=== PATIENT | female | born 1980 | race Caucasian/White ===

== ENCOUNTER → 2019-02-02 | Outpatient (CLI) | payer BC ==
--- NOTE | 2019-02-15 04:18 | Polysomnography ---
DATE OF STUDY: 02/02/2019 REFERRING PHYSICIAN: Isacc Smith MD INTERPRETING PHYSICIAN: Isacc Smith M.D. STUDY: INTERPRETATION of HOME SLEEP STUDY IMPRESSION: 1. Mild obstructive sleep apnea with apnea-hypopnea index (AHI) of 14.3 with associated arterial oxygen desaturations. 2. No limb movement disorder was observed. RECOMMENDATIONS: 1. Initiate titration for continuous positive airway pressure therapy (CPAP) . 2. ENT evaluation to consider surgical options to correct sleep-disordered breathing. 3. Avoid consumption of alcohol or sedatives before bedtime. 4. Avoid caffeine and exercise within 3-4 hours prior to bedtime. 5. Weight reduction to ideal body weight. 6. Advise patient that excessive daytime sleepiness could pose a danger to the patient and others while driving or operating heavy machinery, and to use caution until symptoms are treated and improved. 7. Patient to follow up with physician to discuss results of study. Isacc Smith MD JKY/MODL /[id number] MTDD
== END ==
LOC: SLEEP 19:33
PROVIDERS: ATTEND Otolaryngology
DX: G47.33 Obstructive sleep apnea (adult) (pediatric) (principal)
CPT/HCPCS: 95806